=== PATIENT | male | born 1995 | race Caucasian/White ===

== ENCOUNTER → 2018-07-25 | Outpatient (CLI) | payer OTHER ==
[~2018-07-25] MED LIST: IBUPROFEN 800800 M1 PO; NOHOMEMEDICATIONS; PREDNISONE 20 M20 MG PO; ULTRAM 50MG TAB50 MG PO
== END ==
LOC: M.RAD 10:06
DX: M54.5 Low back pain (principal); Z88.0 Allergy status to penicillin